=== PATIENT | male | born 1990 | race Caucasian/White ===

== ENCOUNTER 2018-09-18 21:43 | Emergency (ER) | payer SELFPAY ==
[2018-09-18] MEDS ORDERED: ceFAZolin 1 GM Vial IM ONE (21:54)
[2018-09-18] MEDS ORDERED: Diphtheria,Pertussis(Acell),Tetanus Vaccine 0.5 ML Syringe IM ONE (21:54)
--- NOTE | 2018-09-18 21:56 | EDM.PDOC ---
ED HPI GENERAL MEDICAL PROBLEM - General Chief Complaint: Upper Extremity Injury/Pain Stated Complaint: CUT RT THUMB ON SAW BLADE Time Seen by Provider: 09/18/18 21:46 - History of Present Illness INITIAL COMMENTS - FREE TEXT/NARRATIVE: HISTORY AND PHYSICAL: History of present illness: The patient is a healthy 28-year-old male who presents after sustaining an injury with a table saw while at home less than a half an hour ago to his right thumb. The patient is left-hand dominant and says he was using a saw when he cut it. He was in his usual state of good health prior to these events and had no systemic complaints and he is not sure of his exact last tetanus but thinks it was about 5 years ago. He complains of pain to his thumb but he is able to move it. He has no other injuries to the remainder of the digits of the right hand or the hand itself. Review of systems: As per history of present illness and below otherwise all systems reviewed and negative. Past medical history: As per history of present illness and as reviewed below otherwise noncontributory. Surgical history: As per history of present illness and as reviewed below otherwise noncontributory. Social history: No reported history of drug or alcohol abuse. Family history: As per history of present illness and as reviewed below otherwise noncontributory. Physical exam: : Well-developed well-nourished man who is nontoxic and well ambulated into the ED without distress. Vital signs are noted by me HEENT: Atraumatic, normocephalic, negative for conjunctival pallor or scleral icterus, mucous membranes moist, throat clear, neck supple, nontender, trachea midline. Lungs: Clear to auscultation, breath sounds equal bilaterally, chest nontender. Heart: S1S2, regular rate and rhythm no overt murmurs Abdomen: Soft, nondistended, nontender. NABS Pelvis: Deferred Genitourinary: Deferred. Rectal: Deferred. Extremities: Atraumatic, full range of motion of all tremors with the exception of the right thumb where at the distal phalanx and PIP flexure there is an L shaped laceration which measures 2.5 cm x 2 cm and there is subcutaneous tissue exposed. There is an area where the epidermis is denuded and scattered areas where there is tissue missing The patient can flex and oppose against resistance without deficit. There is no active bleeding and there is no soft tissue swelling. The remainder of the right hand and digits are intact without defects or deformities. Neurovascular unremarkable. Neuro: Awake, alert, oriented. Cranial nerves II through XII unremarkable. Cerebellum unremarkable. Motor and sensory unremarkable throughout. Exam nonfocal. Diagnostics: X-ray right thumb Therapeutics: Tdap, Ancef, local wound care, lidocaine without epinephrine bacitracin and tube gauze Procedure note: After nursing irrigated the area and cleansed the area the wound was explored and there were no foreign bodies. A digital block using 1% lidocaine without epinephrine and bupivacaine was placed. The skin edges were reapproximated using a total number of 7 sutures in a simple interrupted fashion of 4-0 nylon. It was noted that there is some tissue loss in the region so the edges were tacked together to obtain closure and anatomic alignment. The patient is aware of these concerns going forward. Bacitracin and a tube gauze were placed by nursing ;there were no complications and the patient tolerated the procedure well aerated the procedure. The procedure was performed by Elizabeth TENORIO Patient is aware that x-ray is negative but that he still needs to follow-up with a hand specialist due to the significant trauma of the soft tissue. Will give him Keflex for home Impression: Deep laceration of right thumb Definitive disposition and diagnosis as appropriate pending reevaluation and review of above. Right Finger-Thumb Pain Score (Numeric/FACES): 5 - Related Data Allergies Allergy/AdvReac Type Severity Reaction Status Date / Time No Known Allergies Allergy Verified 09/18/18 21:54 Home Meds: Home Meds . [No Known Home Meds] 09/18/18 [History] Review of Systems - Review of Systems Review Of Systems: ROS reveals no pertinent complaints other than HPI. ED EXAM, GENERAL - Physical Exam Exam: See Below (See dictation) Course - Vital Signs Last Recorded V/S: Last Vital Signs Temp 36.2 C 09/18/18 21:48 Pulse 71 09/18/18 22:58 Resp 16 09/18/18 22:58 BP 120/75 09/18/18 22:58 Pulse Ox 96 09/18/18 22:58 - Orders/Labs/Meds Orders: Active Orders 24 hr Category Date Time Status Vaccines to be Administered [RC] PER UNIT ROUTINE Care 06/08/19 21:54 Active Meds: Medications Discontinued Medications Generic Name Dose Route Start Last Admin Trade Name Thom PRN Reason Stop Dose Admin Bacitracin 1 dose 09/18/18 22:50 09/18/18 23:25 Bacitracin Oint 1 Gm TOP 09/18/18 22:51 1 dose ONETIME ONE Administration Bupivacaine HCl 10 ml 09/18/18 22:05 09/18/18 22:56 Sensorcaine-Mpf 0.5% INJECT 09/18/18 22:06 10 ml ONETIME ONE Administration Cefazolin Sodium 1 gm 09/18/18 21:54 09/18/18 22:55 Ancef IM 09/18/18 21:55 1 gm ONETIME ONE Administration Diphtheria/Tetanus/Acell Pertussis 0.5 ml 09/18/18 21:54 09/18/18 22:55 Adacel IM 09/18/18 21:55 0.5 ml .ONCE ONE Administration Sterile Water Confirm 09/18/18 22:11 09/18/18 22:56 Sterile Water For Injection Administered 09/18/18 22:12 2.5 mls/hr Dose Administration 20 mls @ as directed .ROUTE .STK-MED ONE Lidocaine HCl 5 ml 09/18/18 22:05 09/18/18 22:56 Xylocaine-Mpf 1% INJECT 09/18/18 22:06 5 ml ONETIME ONE Administration Departure - Departure Time of Disposition: 23:51 Disposition: Home, Self-Care 01 Condition: Good Clinical Impression: Deep laceration of finger - Discharge Information Referrals: Harvey Rojas MD [Primary Care Provider] - Forms: ED Department Discharge Additional Instructions: The following information is given to patients seen in the emergency department who are being discharged to home. This information is to outline your options for follow-up care. We provide all patients seen in our emergency department with a follow-up referral. The need for follow-up, as well as the timing and circumstances, are variable depending upon the specifics of your emergency department visit. If you don't have a primary care physician on staff, we will provide you with a referral. We always advise you to contact your personal physician following an emergency department visit to inform them of the circumstance of the visit and for follow-up with them and/or the need for any referrals to a consulting specialist. The emergency department will also refer you to a specialist when appropriate. This referral assures that you have the opportunity for followup care with a specialist. All of these measure are taken in an effort to provide you with optimal care, which includes your followup. Under all circumstances we always encourage you to contact your private physician who remains a resource for coordinating your care. When calling for followup care, please make the office aware that this follow-up is from your recent emergency room visit. If for any reason you are refused follow-up, please contact the [facility] emergency department at and ask to speak to the emergency department charge nurse. Dr. [place] [facility] [address] [facility] [id number] @ Dr Andre & Dr Prince [facility] [address] [place] [id number] @ Dr Sánchez [facility] [address] [facility] [id number] Please keep the dressing on that was placed here in the ED for the next 24 hours then remove and cleanse with mild soap and water pat dry and apply bacitracin or Neosporin. Keep the area open to air as much as possible and only cover it as you need to with a gauze or breathable dressing and do not use Band- Aids. Take the Keflex you have been prescribed and use [id number] medications for pain. Please contact one of the hand specialists above for follow-up care, keeping in mind that the closest is at [facility]. Follow-up is important as this wound was very deep and needs further reevaluation and care. Return to ER as needed and as discussed - My Orders Last 24 Hours: My Active Orders 09/18/18 21:54 Vaccines to be Administered [RC] PER UNIT ROUTINE - Assessment/Plan Last 24 Hours: My Active Orders 09/18/18 21:54 Vaccines to be Administered [RC] PER UNIT ROUTINE
[2018-09-18] MEDS ORDERED: Bupivacaine 0.5% 10 ML SDV INJECT ONE (22:05)
[2018-09-18] MEDS ORDERED: Water For Injection, Sterile 20 ML ONE (22:11)
[2018-09-18] MEDS ORDERED: Bacitracin Oint 1 GM U/D Packet TOP ONE (22:50)
--- NOTE | 2018-09-18 23:44 | CR ---
3 VIEWS right thumb INDICATION: Injury. IMPRESSION: Soft tissue injury distal digit. No visualized fracture. Alignments anatomic. Joint spaces unremarkable. Dictated by Moise Méndez MD @ Sep 18 2018 11:41PM Signed by Dr. Moise Méndez @ Sep 18 2018 11:41PM
== END 2018-09-19 00:21 | disposition home or self-care (01) ==
LOC: MW.ED 21:43
DX: S61.011A Laceration without foreign body of right thumb without damage to nail, initial encounter (principal); Z23 Encounter for immunization; W31.2XXA Contact with powered woodworking and forming machines, initial encounter
CPT/HCPCS: 12002; 73140; 90471; 90715; 96372; 99283; J0690; J2001; J3490